=== PATIENT | male | born 1950 | race Caucasian/White ===

== ENCOUNTER 2017-04-17 13:00 | Emergency (ER) | payer OTHER, MEDICARE ==
[~2017-04-17] VITALS: Ht 177.8 cm; Wt 73.1 kg
[2017-04-17 13:40] LABS: ADD MIUA? YES; BILIRUBIN NEGATIVE; BLOOD NEGATIVE; COLOR YELLOW ((YELLOW)); GLUCOSE (STRIP) NEGATIVE; KETONES NEGATIVE; LEUKOCYTES NEGATIVE; NITRITE NEGATIVE; PROTEIN (STRIP) 100; SPECIFIC GRAVITY 1.016 (1.000-1.030); UROBILINOGEN 0.2 MG/DL (0.2-1.0)
[2017-04-17 13:50] LABS: BACTERIA RARE /HPF; EPITHELIAL CELLS NONE SEEN /HPF; MUCUS TRACE /LPF; RED BLOOD CELLS 0-5 /HPF (0-5); UCUL ADDED? YES
[2017-04-17 14:00] LABS: EOSINOPHIL (%) 0.2 % (0-5); HEMATOCRIT 50.7 % (38.0-50.0); IMMATURE GRANULOCYTE (%) 0.5 % (0.0-0.7); IMMATURE GRANULOCYTE COUNT 0.1 K/uL; INSTRUMENT ABS NEUTROPHIL CT 11.1 K/uL; MCH 30.8 PG (29.0-34.0); MCHC 34.1 G/DL (30.0-36.0); MCV 90.2 FL (86-99); MEAN PLAT.VOLUME 9.5 uM^3 (9.0-12.4); MONOCYTE COUNT 0.8 K/uL (0-0.8); NEUTROPHIL (%) 85.7 % (45-76); NEUTROPHIL COUNT 11.1 K/uL (1.8-6.4); PLATELET COUNT 312 K/uL (156-360); RBC DIS.WIDTH-CV 12.3 % (11.8-14.6); RBC DIS.WIDTH-SD 40.4 % (39-53); RED BLOOD COUNT 5.62 M/uL (4.00-5.50)
[2017-04-17 14:08] LABS: CHLORIDE 100 mEq/L (99-109); POTASSIUM 3.8 mEq/L (3.7-5.4); SODIUM 142 mEq/L (136-147)
[2017-04-17 14:10] LABS: GLUCOSE 112 mg/dL (70-99)
[2017-04-17 14:11] LABS: ANION GAP 13 MEQ/L (2-14)
[2017-04-17 14:12] LABS: TOTAL BILIRUBIN 0.5 mg/dL (0.0-1.0)
[2017-04-17 14:14] LABS: ALKALINE PHOSPHATASE 58 IU/L (3-129); GFR ESTIMATE (CALCULATED) > 59 mL/min/
[2017-04-17 14:15] LABS: UREA NITROGEN (BUN) 15 mg/dL (9-23)
[2017-04-17 14:17] LABS: LIPASE 56 U/L (1.0-51.0)
[2017-04-17] MEDS ORDERED: BENTYL20 MG PO (16:14)
[2017-04-17] MEDS ORDERED: CIPRO500 MG PO (16:15)
[2017-04-17 16:43] VITALS: BP 130/75
== END 2017-04-17 17:34 | disposition home or self-care (01) ==
LOC: EME 13:00
PROVIDERS: Emergency Medicine
DX: K52.9 Noninfective gastroenteritis and colitis, unspecified (principal); N39.0 Urinary tract infection, site not specified; I10 Essential (primary) hypertension; G35 Multiple sclerosis
CPT/HCPCS: 74177; 80053; 81003; 83690; 85025; 87086; 99281; 99285; J2270; J2405; J7030